=== PATIENT | male | born 1975 | race Caucasian/White ===

== ENCOUNTER 2022-06-09 09:46 | Emergency (ER) | payer OTHER, BC, SELFPAY ==
--- NOTE | ~2022-06-09 | XR_ITS ---
EXAMINATION: XR knee LT min 4V DATE: 06/09/2022 10:24 INDICATION: Persistent pain and feeling that the left knee will go out post fall one and a half month s prior TECHNIQUE: Anteroposterior, 2 oblique and crosstable lateral views of the affected knee were obtained COMPARISON: None. FINDINGS: Alignment is normal. No fracture. No joint effusion/layering lipohemarthrosis. Prominent prepatellar and infrapatellar soft tissue swelling at the anterior left knee. IMPRESSION: 1. Prominent prepatellar and infrapatellar soft tissue swelling. No left knee joint effusion or osseo us abnormality. Reviewed, dictated and finalized at location A. [employer] IMPRESSION: 1. Prominent prepatellar and infrapatellar soft tissue swelling. No left knee j oint effusion or osseous abnormality.
--- NOTE | 2022-06-09 09:57 | ED.LOWEXIN ---
HPI - Extremity Injury (Lower) General Chief Complaint: Extremity Injury, Lower Stated Complaint: Fall Injury/Left Knee Time Seen by Provider: 06/09/22 09:57 Source: patient and RN notes reviewed History of Present Illness HPI Narrative: patient is a 39 old male is the Urgent the complaints of acute on chronic left knee. Patient states that he was caring a large concrete tube and knocked his knee on the concrete approximately 1 month ago. Patient states that the leg feels better with the knee straight. Patient has not taken anything [id number] for his pain. No other acute complaints. No acute distress noted. Patient aware of the plan of care. Some parts of this dictation were generated by voice recognition software and may contain typographical and/or grammatical inaccuracies. Related Data Allergies Allergy/AdvReac Type Severity Reaction Status Date / Time acetaminophen [From Percocet] Allergy Unknown Verified 06/09/22 10:23 oxycodone [From Percocet] Allergy Unknown Verified 06/09/22 10:23 Review of Systems Review of Systems: CONSTITUTIONAL: Denies fever, chills, or sweats. EYES: Denies visual changes, redness, or discharge. ENT: Denies rhinorrhea, congestion, sore throat, or otalgia. CARDIOVASCULAR: Denies chest pain, palpitations, or edema. RESPIRATORY: Denies cough or dyspnea. GASTROINTESTINAL: Denies abdominal pain, nausea, vomiting, or diarrhea. GENITOURINARY: Denies dysuria or hematuria. SKIN: Denies rash or itching. MUSCULOSKELETAL: reports of left anterior knee pain NEUROLOGIC: Denies headache, numbness, or weakness. All other systems reviewed are negative, except as documented in HPI. PMFSH Comments At the time of my signature, I reviewed and agree with the nursing past medical, surgical, social, and family history. There is no relevant family history pertinent to the patient complaint. Exam Narrative: GENERAL: This is a well-nourished, well-developed patient, in no apparent distress. HEAD: normocephalic, atraumatic. EYES: PERRL. Sclera clear/white. Vision is grossly intact. EARS: External ears normal NOSE: External nose normal with no obvious nasal discharge, nares without redness, no rhinorrhea. THROAT: Mucous membranes moist NECK: Neck supple, SKIN: warm, intact with no suspicious lesions or rash, good texture and turgor. NEURO: awake, alert, and oriented to person, place and time. There were no obvious focal neurologic abnormalities. EXTREMITIES: mild tenderness/ erythema noted to the left tibial tuberosity area. Mild exacerbated pain on adduction. Positive strong left pedal pulse with capillary refill less than 2 seconds. No obvious dislocation or deformity noted to left lower extremity /knee Course Course Level of Care: Express Care Visit Vital Signs Vital signs: Vital Signs Temperature 97.8 F 06/09/22 10:05 Pulse Rate 79 06/09/22 10:05 Respiratory Rate 16 06/09/22 10:05 Blood Pressure 114/84 06/09/22 10:05 Pulse Oximetry 100 06/09/22 10:05 Oxygen Delivery Room Air 06/09/22 10:05 Temperature 97.8 F 06/09/22 10:05 Pulse Rate 79 06/09/22 10:05 Respiratory Rate 16 06/09/22 10:05 Blood Pressure 114/84 06/09/22 10:05 Pulse Oximetry 100 06/09/22 10:05 Oxygen Delivery Room Air 06/09/22 10:05 reviewed MDM - Extremity Injury (Lower) MDM Narrative Medical decision making narrative: Reviewed x-ray results with the patient. He is aware that there is prominent swelling but no obvious dislocation or fracture. Advised the patient to obtain a knee brace [id number] or the provided Troy wrap for comfort and support. Use Tylenol/ ibuprofen as needed for pain or discomfort. Use ice as needed. Follow-up with your PCP/ referred orthopedics for further evaluation /treatment. Differential Diagnosis Differential diagnosis: Likely ankle sprain and strain, acute internal derangement of knee, fracture of femur, fracture of hip, puncture wound of foot,
[2022-06-09 10:05] VITALS: BP 114/84; PULSE 79; RESP 16; TEMP 36.6; O2SAT 100
== END 2022-06-09 10:46 | disposition home or self-care (01) ==
PROVIDERS: Emergency Provider Nurse Practitioner Family; PCP Physician Assistant
DX: M25.562 Pain in left knee (principal)
CPT/HCPCS: 73564; 99203; G0463